=== PATIENT | female | born 1975 | race Caucasian/White ===

== ENCOUNTER 2016-12-31 05:06 | Observation (INO) ==
--- NOTE | 2016-12-31 05:19 | Emergency Department Note ---
Disposition Clinical Impression: Acute exacerbation of chronic obstructive airways disease, Hypoxia, Respiratory distress Disposition: Admitted As Inpatient Condition: Good Time of Disposition: 07:27 SOB HPI - General Chief Complaint: ED Shortness of Breath/Dyspnea Stated Complaint: gera/no voice Time Seen by Provider: 12/31/16 05:13 Source: patient Mode of arrival: ambulatory Limitations: no limitations Nursing Notes Reviewed: Yes Vital Signs Reviewed: Yes - History of Present Illness 13-year-old female past medical history hypertension, hyperlipidemia, COPD presents to the ED for difficulty in breathing. Reports URI symptoms over the past 3-4 days. She has increase difficulty breathing starting this evening and the last 2 days. Reports temperature of 101.2 3 hours prior to arrival, took Tylenol. She takes maintenance inhaler as well as albuterol inhaler which she used earlier prior to arrival. Reports increased use and frequency. Nonproductive cough. Has associated chest pain with deep inhalation and cough. Denies any recent long-distance travel, recent surgery, trauma, injury. History of uterine cancer in 1999. Denies any history of blood clots. Denies any recent hospitalizations in the past 3 months. Reports similar symptoms 7 years ago when she was hospitalized for pleurisy and pneumonia. 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 Pt Subjective Complaint: shortness of breath, cough Onset (ago): day(s) Consistency/Duration: intermittent Improves with: rest Known history of: COPD Associated symptoms: Reports: chest pain, pain with inspiration, fever, cough, wheezing. Denies: lower extremity pain, hemoptysis, diaphoresis, rash - Related Data Home Medications Medication Instructions Recorded Confirmed Furosemide [Lasix] 40 mg PO DAILY 06/13/15 12/31/16 Escitalopram [Lexapro] 10 mg PO DAILY 08/26/16 12/31/16 Atenolol [Tenormin] 50 mg PO DAILY 12/31/16 12/31/16 Dextroamphetamine/Amphetamine 10 mg PO BID 12/31/16 12/31/16 [Adderall 10 mg Tablet] Hydrocodone/Acetaminophen [[place] 1 tab PO Q6H PRN 12/31/16 12/31/16 7.5-325 Tablet] [place] Carbonate ER [Eskalith] 450 mg PO BID 12/31/16 12/31/16 Methocarbamol [Robaxin] 500 mg PO BID 12/31/16 12/31/16 Allergies Allergy/AdvReac Type Severity Reaction Status Date / Time codeine Allergy Hives Verified 12/31/16 09:25 Egg Derived AdvReac Abdominal Verified 12/31/16 05:10 Pain metoclopramide [From Reglan] AdvReac Weakness Verified 12/31/16 09:25 shellfish derived AdvReac Vomiting Verified 12/31/16 05:10 All systems ED: reviewed and negative except as stated. Constitutional: Reports: fever Cardiovascular: Reports: chest pain Respiratory: Reports: cough, dyspnea, wheezes Gastrointestinal: Denies: abdominal pain, nausea, vomiting Genitourinary: Denies: urgency, dysuria Integumentary: Denies: rash Neurological: Denies: headache Past Medical History - Past Medical History Attestation: Yes The following information was validated with the patient. 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 OFFICER history: Reports: no SUPERVISORY CBP OFFICER history - Social History Smoking Status: Former smoker Smokeless Tobacco Status: No Alcohol use: Reports: occasionally Drug use: Reports: none Physical Exam - General Limitations: no limitations General appearance: alert, in no apparent distress, obese, other (some conversational dyspnea) - Head Head exam: atraumatic, normocephalic, normal inspection - Eye Eye exam: Present: normal appearance, PERRL, EOMI - ENT ENT exam: normal exam, normal oropharynx, mucous membranes moist - Neck Neck exam: Present: normal inspection, full ROM, trachea midline - Chest Chest inspection: Present: normal inspection, symmetric chest wall rise, tenderness (chest discomfort reproducible on palpation). Absent: rash - Respiratory Respiratory exam: Present: normal lung sounds bilaterally, wheezes (Audible expiratory), other (Conversational dyspnea, 2 words). Absent: respiratory distress - Expanded Respiratory Exam Location: wheezes: Left, Right - Cardiovascular Cardiovascular exam: Present: regular rate, normal rhythm, normal heart sounds - Abdominal Exam Abdominal exam: Present: soft, Non-Tender, normal bowel sounds. Absent: tenderness, distention, guarding, rebound, rigidity - Extremities Exam Extremities exam: Present: normal inspection, full ROM, normal capillary refill. Absent: tenderness, pedal edema, calf tenderness - Neurological Exam Neurological exam: Present: alert, oriented X3 - Psychiatric Psychiatric exam: Present: normal affect, normal mood - Skin Skin exam: Present: warm, dry, intact, normal color Course Course Narrative: 41-year-old female history of COPD presents the ED with difficulty in breathing. This progressively worsened over the past 2 days. Reports of a nonproductive cough and fever. Increased use and inhalers. Patients afebrile here. Initially tachycardic 103 with O2 95% RA after ambulating to examination room she was HR 97 and 96% RA without intervention. Patient was ambulatory to the examination room without much difficulty. She has some audible wheezes and conversational dyspnea, but clear bilaterally with tight breath sounds. Chest tenderness reproducible on palpation. Legs are nonedematous without calf tenderness. Concern for possible pneumonia versus COPD exacerbation. Patient has low risk for PE, her process today is likely more COPD exacerbation with her known history. Will get CXR, basic labs, duonebs, steroids, and then reassess. Chest pain is likely not ACS, but will get troponin. EKG is normal sinus without any acute ischemic changes. Patient is in agreement with plan. - Reevaluation(s) Reevaluation #1: Chest x-ray interpreted by radiologist is clear lungs. However on review of films there appears to be a questionable infiltrate on the lateral film in the retro cardiac region. Patient does not have a leukocytosis, labs are otherwise unremarkable. Patient did become hypoxic at 88% responded well with oxygen supplementation 2 L nasal cannula. With additional 2 duoneb treatments, she has minimal improvement. Will plan to admit for COPD exacerbation, possible pneumonia with history of recent fever, and respiratory distress, hypoxia. Will treat with antibiotics Azithromycin 500 and Ceftriaxone 1000 mg. Complaints of a headache, toradol ordered. Patient is in agreement with plan. Time: 06:58 - Consultations Consultation #1: Spoke with on-call hospitalist jess Dockery to admit for COPD exacerbation, hypoxia, and respiratory distress. No further orders at this time Time: 07:27 Vital Signs Temperature 98.1 F 12/31/16 05:10 Pulse Rate 103 12/31/16 05:10 Respiratory Rate 28 12/31/16 05:10 Blood Pressure 133/84 12/31/16 05:10 O2 Sat by Pulse Oximetry 94 L 12/31/16 05:10 Temperature 98.0 F 01/02/17 19:38 Pulse Rate 68 01/02/17 19:38 Respiratory Rate 22 01/02/17 19:38 Blood Pressure 118/72 01/02/17 19:38 O2 Sat by Pulse Oximetry 92 L 01/02/17 19:38 Oxygen Delivery Oxygen Delivery Nasal Cannula Shortness of Breath/Dyspnea - Differential Diagnosis Likely: acute exacerbation of chronic obstructive airways disease - Medical Records Medical records reviewed: Yes I reviewed the patient's medical records. - Lab Data Lab results reviewed: Yes I reviewed the patient's lab results. Result diagrams: 12/31/16 06:06 01/02/17 04:26 Lab Results 12/31/16 12/31/16 12/31/16 Range/Units 06:06 06:06 06:06 WBC 8.8 (4.3-11.1) K/mcL RBC 4.48 (3.82-4.97) M/mcL Hgb 12.4 (11.5-15.4) g/dL Hct 38.1 (35.3-44.9) % MCV 85.0 (83.0-100.0) fL MCH 27.7 L (28.0-33.3) pg MCHC 32.5 (31.6-35.5) g/dL RDW 13.7 (11.5-14.5) % Plt Count 255 (140-400) K/mcL MPV 9.1 L (9.4-12.4) fL Immature Gran % 0.2 (0-4) % Seg Neutrophils % 60.5 % Lymphocytes % 27.4 % Monocytes % 7.8 % Eosinophils % 3.3 % Basophils % 0.8 % Neutrophils # 5.4 (1.6-8.9) K/mcL Lymphocytes # 2.4 (0.6-4.6) K/mcL Monocytes # 0.7 (0.0-1.3) K/mcL Eosinophils # 0.3 (0.0-0.6) K/mcL Basophils # 0.1 (0.0-0.2) K/mcL Sodium 139 (136-145) mEq/L Potassium 3.6 (3.5-4.5) mEq/L Chloride 107 (98-109) mEq/L Carbon Dioxide 22 (19-29) mEq/L BUN 16 (7-20) mg/dL Creatinine 0.84 (0.57-1.11) mg/dL Est GFR ( Amer) > 60 (> 60) Est GFR (Non-Af Amer) > 60 (> 60) BUN/Creatinine Ratio 19 (6-26) Glucose 94 (70-99) mg/dL Calculated Osmolality 289 (280-300) Calcium 8.9 (8.6-10.8) mg/dL Troponin I 0.00 (0-0.03) ng/mL - Radiology Data Radiology results reviewed: Yes I reviewed the patient's radiology results. Images interpreted by radiologist and reviewed by myself, area of concern on lateral view in retro cardiac region for infiltrate Chest X-Ray 12/31/16 05:29 IMPRESSION: Clear lungs. D/ / Donn Turpin MD / Donn Turpin MD Interpreting Provider: Donn Turpin MD - EKG Data EKG attestation: Yes I reviewed and interpreted this EKG. EKG results narrative: EKG performed 530 normal sinus rhythm 95 bpm, ventricular conduction delay, there are no ST elevations or depressions, T-wave inversion in lead III, possible left atrial enlargement, intervals are within normal limits LA 152 QRS 84 QT QTC 335 388. Compared old EKG performed 04/10/2015 which shows inverted T waves in inferior leads and precordial leads which are not present on today's EKG. No acute ischemic changes. Attestation Statement - Attestation Attestation: For this encounter, I have reviewed the resident, DIRECTOR INTERNATIONAL, or PA documentation, treatment plan, and medical decision making; and I have had face to face time with this patient. 41-year-old female who presents complaining of increased difficulty in breathing over the past 3-4 days. Patient states she has a history of COPD and asthma and her symptoms do feel somewhat similar to previous exacerbations. Patient reports a fever of 101.2 at home. She states she took Tylenol prior to arrival. Patient reports a hoarse voice over the past 48 hours. Patient given breathing treatments in the emergency department with mild improvement of her symptoms. She does not have a leukocytosis and the chest x-ray was read as negative however there is an area in the retrocardiac area that is concerning for infiltrate. The patient will receive antibiotics in the emergency department. At the end of my shift, 7am, she is receiving duo nebs and will be signed out to Dr. Chow pending re-evaluation and dispo
[2016-12-31] MEDS ORDERED: Ipratropium/Albuterol Neb 3 ML IH ONE ×3 (05:24→06:34)
[2016-12-31] MEDS ORDERED: predniSONE 20 MG TABLET PO ONE (05:28)
[2016-12-31 06:15] LABS: Basophils # 0.1 K/mcL (0.0-0.2); Basophils % 0.8 %; Eosinophils # 0.3 K/mcL (0.0-0.6); Eosinophils % 3.3 %; Hematocrit 38.1 % (35.3-44.9); Hemoglobin 12.4 g/dL (11.5-15.4); Immature Granulocytes % 0.2 % (0-4); Lymphocytes # 2.4 K/mcL (0.6-4.6); Lymphocytes % 27.4 %; Mean Corpuscular HGB Conc 32.5 g/dL (31.6-35.5); Mean Corpuscular Hemoglobin 27.7 pg (28.0-33.3); Mean Platelet Volume 9.1 fL (9.4-12.4); Monocytes # 0.7 K/mcL (0.0-1.3); Monocytes % 7.8 %; Neutrophils # 5.4 K/mcL (1.6-8.9); Platelet Count 255 K/mcL (140-400); Red Blood Count 4.48 M/mcL (3.82-4.97); Red Cell Distribution Width 13.7 % (11.5-14.5); Segmented Neutrophils % 60.5 %
[2016-12-31 06:28] LABS: BUN/Creatinine Ratio 19 (6-26); Blood Urea Nitrogen 16 mg/dL (7-20); Calcium 8.9 mg/dL (8.6-10.8); Carbon Dioxide 22 mEq/L (19-29); Chloride 107 mEq/L (98-109); Glucose 94 mg/dL (70-99); Osmolality,Calculated 289 (280-300); Potassium 3.6 mEq/L (3.5-4.5); Sodium 139 mEq/L (136-145); eGFR For African Americans > 60 (> 60); eGFR For Non-African Americans > 60 (> 60)
[2016-12-31] MEDS ORDERED: Azithromycin 500 MG in D5% in Water 250 ML IVPB SCH (07:00)
[2016-12-31] MEDS ORDERED: Ketorolac 30 MG/ML VIAL IVP ONE (07:17)
[2016-12-31] MEDS ORDERED: Albuterol 2.5 MG/3 ML NEBULIZER IH PRN (08:24)
[2016-12-31] MEDS ORDERED: Naloxone 0.4 MG/ML INJ IVP PRN (08:25)
[2016-12-31] MEDS ORDERED: Ibuprofen 400 MG TABLET PO PRN (08:25)
[2016-12-31] MEDS ORDERED: Acetaminophen 325 MG TABLET PO PRN (08:25)
[2016-12-31] MEDS ORDERED: Ondansetron 4 MG/2 ML VIAL IVP PRN (08:25)
[2016-12-31] MEDS ORDERED: *HR* HYDROcodone/Acet 5/325 mg TABLET PO PRN (08:25)
--- NOTE | 2016-12-31 08:36 | Internal Med History&Physical ---
Date of Encounter: 12/31/16 Time of Encounter: 07:45 Internal Medicine - H&P: HPI Chief complaint: COUGH, SOB, HOARSENESS OF VOICE, SORE THROAT X 2 DAYS Admitted From: Emergency Dept Plans for Post Hospital Care: Home History of present illness: Ms. Chi is a 41 year old female with medical history significant for hypertension, hyperlipidemia, asthma/COPD presents with 3 days of SOB, sore throat, cough, fever. She has had a documented temperature of 101.2 threee hours before presenting to the ED. She reports a non-productive cough. No rash, no sick contacts, no recent travel. 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 No recent hospitalization. No prior out-patient treatment. She is obese, she does not soke. She did not receive influenza vaccination for the season. She reports a similar episode 7 years ago , at that time she was diagnosed with pneumonia and pleurisy. She uses maintenance and rescue inhlalers for asthma/early COPD. Her only smoking history was smoking for 9 months while she was in her second marraige. She has used Tylenol for fever control. No history of CAD/DVT/PE. No long distance travel. nO URINARY OR NEUROLOGICAL SYMPTOMS, NO n/v/d OR CONSTIPATION, no hemoptysis, no bleeding from any orifice. no flank pain, she reports chest pain , worse with coughing and deep breathing. She has nasal and chest congestion, headaches and myalgia, though she has a background history of fibromyalgia. No earaches, dizziness or vertigo, no tinnitus or hearing loss. At arrival in the ED, she was afebrile, tachycardic (103), non-hypoxic, 95% (room air) but was wheezing. She has received Duonebs, Azithromycin and Ceftriaxone in the ED. She is FULL CODE as per discussion, she nominates her , Ricky Chi, [phone] as her NOK/POA. ROS: A 10-point ROS was performed, positives and relevant negatives are detailed , system-symptom not mentioned assumed negative unless otherwise stated. Family history: Mother is diabetic, was hypertensive and hypothyroid., siblings and children have a clean bill or health. She does not know much of her father' s medical history. Vital Signs Temperature 98.1 F 12/31/16 05:10 Pulse Rate 103 12/31/16 05:10 Respiratory Rate 28 12/31/16 05:10 Blood Pressure 133/84 12/31/16 05:10 O2 Sat by Pulse Oximetry 94 L 12/31/16 05:10 Temperature 98.1 F 12/31/16 05:10 Pulse Rate 97 12/31/16 05:26 Respiratory Rate 20 12/31/16 06:39 Blood Pressure 133/84 12/31/16 05:10 O2 Sat by Pulse Oximetry 97 12/31/16 06:39 O/E: Mild respiratory distress, ill and toxic looking HEENT: Not pale, anicteric, acyanotic, mild tachypnea. She is febrile to touch. Chest: Scattered expiratory wheezing, prolonged expiratory phase, inspiratory crackles in the lung bases. Chest wall pain reproduced with deep breathing and coughing. Heart: Tachycardia, RR, HS1.2 no murmur Abdomen: soft, non-tender, no masses. BS+ : no flank tenderness, no CVA tenderness, no suprapubic tenderness. CREDIT COORDINATOR: aao x 3, no focal neurological deficits. Psychiatry: mood is good, affect is congruent, speech is normal, thought process is logical and goal-directed. Extremities: no pedal edema, normal pedal pulse, no calf tenderness. Lab Results 12/31/16 12/31/16 12/31/16 Range/Units 06:06 06:06 06:06 WBC 8.8 (4.3-11.1) K/mcL RBC 4.48 (3.82-4.97) M/mcL Hgb 12.4 (11.5-15.4) g/dL Hct 38.1 (35.3-44.9) % MCV 85.0 (83.0-100.0) fL MCH 27.7 L (28.0-33.3) pg MCHC 32.5 (31.6-35.5) g/dL RDW 13.7 (11.5-14.5) % Plt Count 255 (140-400) K/mcL MPV 9.1 L (9.4-12.4) fL Immature Gran % 0.2 (0-4) % Seg Neutrophils % 60.5 % Lymphocytes % 27.4 % Monocytes % 7.8 % Eosinophils % 3.3 % Basophils % 0.8 % Neutrophils # 5.4 (1.6-8.9) K/mcL Lymphocytes # 2.4 (0.6-4.6) K/mcL Monocytes # 0.7 (0.0-1.3) K/mcL Eosinophils # 0.3 (0.0-0.6) K/mcL Basophils # 0.1 (0.0-0.2) K/mcL Sodium 139 (136-145) mEq/L Potassium 3.6 (3.5-4.5) mEq/L Chloride 107 (98-109) mEq/L Carbon Dioxide 22 (19-29) mEq/L BUN 16 (7-20) mg/dL Creatinine 0.84 (0.57-1.11) mg/dL Est GFR ( Amer) > 60 (> 60) Est GFR (Non-Af Amer) > 60 (> 60) BUN/Creatinine Ratio 19 (6-26) Glucose 94 (70-99) mg/dL Calculated Osmolality 289 (280-300) Calcium 8.9 (8.6-10.8) mg/dL Troponin I 0.00 (0-0.03) ng/mL CXR: questionable retrocardic opacity on lateral view. EKG: NSR. no acute changes suggestive of ischemia IMP Sepsis Bilateral pneumonia Asthma exacerbation Mild dehydration Chronic morbidities COPD/Asthma Fibromyalgia Lupus (patient's account) PLAN Admit Rapid influenza, rapid streoptococcal and urine for strep pneumonia antigen IV Ceftriaxone and Azithromycin IV NS with 20 mEQ @ 150 mls/hr Scheduled Duonebs and prn albuterol. Optimal analgesia Regular diet Lovenox 40 mg SC for DVT prophylaxis Oxygen supplementation CT chest, non-contrast. Continue other medivations of chronic medical morbidities I discussed my assessment with the patient, her son was at bedside, she verbalized understanding and is agreeable to admission. She is high risk giving suspicion for sepsis in the setting of pneumonia. Past Med Surg Social Fam HX - Past Medical History Medical history: fibromyalgia, GERD, hypertension, migraine Psychiatric history: anxiety, depression, PTSD - Past Surgical History Surgical History: hysterectomy - Social History Smoking Status: Former smoker Smokeless Tobacco Status: No Alcohol use: occasionally Drug use: none Internal Medicine - H&P: Meds Atenolol [Tenormin] 100 mg PO DAILY 06/13/15 [History] Esomeprazole Magnesium [Nexium] 40 mg PO DAILY 06/13/15 [History] Furosemide [Lasix] 40 mg PO DAILY 06/13/15 [History] Losartan [Cozaar] 25 mg PO DAILY 06/13/15 [History] Milnacipran HCl [[place]] 100 mg PO BID 06/13/15 [History] Montelukast [Singulair] 10 mg PO DAILY 06/13/15 [History] Potassium Chloride 10 meq PO BIDWM 06/13/15 [History] Prazosin [Minipress] 5 mg PO DAILY 06/13/15 [History] Ranitidine HCl 150 mg PO DAILY 06/13/15 [History] Trazodone HCl 150 mg PO DAILY 06/13/15 [History] Hydrocodone/Acetaminophen [[place] 7.5-325 Tablet] 1 each PO Q6H PRN #20 tablet [Rx] Escitalopram [Lexapro] 10 mg PO DAILY 08/26/16 [History] [place] Carbonate 150 mg PO DAILY 08/26/16 [History] Allergies codeine Allergy (Verified 12/31/16 05:10) Nausea metoclopramide [From Reglan] Allergy (Verified 12/31/16 05:10) Nausea Egg Derived Adverse Reaction (Verified 12/31/16 05:10) Abdominal Pain shellfish derived Adverse Reaction (Verified 12/31/16 05:10) Vomiting All Systems PM: A 10-system review of systems was performed and is negative for pertinent findings except as documented above in the HPI. - Constitutional Vitals: Temp Pulse Resp BP Pulse Ox 98.1 F 97 20 133/84 97 12/31/16 05:10 12/31/16 05:26 12/31/16 06:39 12/31/16 05:10 12/31/16 06:39 Internal Med - H&P Results - Labs CBC & Chem 7: 12/31/16 06:06 12/31/16 06:06
[2016-12-31] MEDS: 0.9 % Sodium Chloride w KCl 20 MEQ/1,000 ML MLS IVC SCH ×3 (09:58→22:33)
[2016-12-31] MEDS: Famotidine 20 MG TABLET PO SCH ×2 (09:58→20:47)
[2016-12-31] MEDS ORDERED: FLU VACC QS2016-17 36MOS UP/PF 0.5 ML SYRINGE IM ONE (10:57)
[2016-12-31] MEDS: Ipratropium/Albuterol Neb 3 ML IH SCH ×3 (11:22→23:04)
[2016-12-31] MEDS: methylPREDNISolone 125 MG/2 ML VIAL IVP SCH (16:13)
[2016-12-31] MEDS: *HR* HYDROcodone/Acet 7.5/325 mg TABLET PO PRN ×2 (16:13→22:26)
[2016-12-31] MEDS: Methocarbamol 500 MG TABLET PO SCH (20:46)
[2016-12-31] MEDS: Lithium Carbonate ER 450 MG TABLET.ER PO SCH (22:04)
[2017-01-01] MEDS: methylPREDNISolone 125 MG/2 ML VIAL IVP SCH ×4 (00:02→23:54)
[2017-01-01] MEDS: Ipratropium/Albuterol Neb 3 ML IH SCH ×4 (05:05→23:40)
[2017-01-01] MEDS: 0.9 % Sodium Chloride w KCl 20 MEQ/1,000 ML MLS IVC SCH (05:20)
[2017-01-01] MEDS: *HR* Enoxaparin 40 MG/0.4 ML SYRINGE SQ SCH (06:09)
[2017-01-01 06:46] LABS: Alanine Aminotransferase 13 Units/L (0-55); Albumin 3.5 g/dL (3.5-5.0); Alkaline Phosphatase 55 Units/L (38-126); Aspartate Amino Transferase 14 Units/L (5-34); BUN/Creatinine Ratio 13 (6-26); Bilirubin,Total 0.2 mg/dL (0.2-1.2); Blood Urea Nitrogen 9 mg/dL (7-20); Calcium 8.9 mg/dL (8.6-10.8); Carbon Dioxide 20 mEq/L (19-29); Chloride 110 mEq/L (98-109); Globulin 3.4 g/dL (2.4-3.5); Glucose 151 mg/dL (70-99); Osmolality,Calculated 288 (280-300); Sodium 138 mEq/L (136-145); Total Protein 6.9 g/dL (6.0-8.3); eGFR For African Americans > 60 (> 60); eGFR For Non-African Americans > 60 (> 60)
[2017-01-01 06:49] LABS: Potassium 4.8 mEq/L (3.5-4.5)
[2017-01-01] MEDS: *HR* HYDROcodone/Acet 7.5/325 mg TABLET PO PRN ×2 (08:51→18:02)
[2017-01-01] MEDS: Methocarbamol 500 MG TABLET PO SCH ×2 (08:51→21:10)
[2017-01-01] MEDS: Lithium Carbonate ER 450 MG TABLET.ER PO SCH ×2 (08:51→21:10)
[2017-01-01] MEDS: Famotidine 20 MG TABLET PO SCH ×2 (08:51→21:10)
[2017-01-01] MEDS ORDERED: Azithromycin 500 MG in D5% in Water 250 ML IVPB SCH (09:00)
[2017-01-01] MEDS: *HR* Morphine 2 MG/ML SYRINGE IVP PRN ×2 (12:40→21:10)
--- NOTE | 2017-01-01 12:54 | Internal Med Progress Note ---
Date of Encounter: 01/01/17 Time of Encounter: 11:10 - Assessment and plan (1) Bronchitis Current Visit: Yes Status: Acute Assessment and plan: Continue supportive care NO evidence of pneumonia Flu is negative Throat culture is negative Change antibiotics to po starting from tomorrow Continue duonebs Continue solumedrol Change to prednisone po a.m Start lozenges Saturating 96% on room air, ot hypoxic Continue supportive care (2) Acute exacerbation of chronic obstructive airways disease Current Visit: Yes Status: Acute Assessment and plan: As above (3) Lupus Current Visit: Yes Status: Acute Assessment and plan: Self-reported Resume home meds Qualifiers: Systemic lupus erythematosus type: unspecified Systemic lupus erythematosus organ involvement: unspecified Qualified Code(s): M32.9 - Systemic lupus erythematosus, unspecified (4) Fibromyalgia Current Visit: Yes Status: Chronic Assessment and plan: Self-reported Continue home meds Obtain Utox (5) Anxiety Current Visit: Yes Status: Chronic Assessment and plan: Resume home meds - Subjective Interval history: Initial encounter EMR reviewed 41 year old female with medical history significant for hypertension, fibromyalgia, hyperlipidemia, asthma/COPD, ANNA s/p uvulectomy, no longer on BIPAP, ADHD, Bipolar disorder Patient is being managed for acute asthma exacerbations secondary to bronchitis Patient is not septic, she did verbally report a fever of 102, but has been afebrile since admission, there is also no leukocytosis or leukopenia, nor is there a source at the moment (Chest CT and CXR negative for PNA, NO tonsillar exudates on exam, throat culture is negative, she has no urinary symptoms) She is seen at bedside, comfortable in no obvious distress She reports she feels better and Still has sore throat, throat exam reveals mild hyperemia, no exudates, no lymphadenopathy She is also requesting to be restarted on home dose of lasix, patient was placed on IVF due to suspicion of sepsis on presentation - Constitutional Vitals: Temp Pulse Resp BP Pulse Ox 97.9 F 72 16 115/64 95 01/01/17 11:57 01/01/17 11:57 01/01/17 11:57 01/01/17 11:57 01/01/17 11:57 General appearance: Present: A&O X 3, morbidly obese, pleasant, no acute distress - Head Head exam: Present: atraumatic - Eye Eye exam: Present: PERRL, conjuntiva pink, sclera anicteric - ENT ENT exam: Present: mucous membranes moist Additional comments: No pharyngeal exudates - Neck Neck exam general surgery: Present: normal inspection. Absent: lymphadenopathy , nuchal rigidity - Respiratory Respiratory exam: Present: CTAB. Absent: accessory muscle use, rales, rhonchi, wheezes - Cardiovascular Cardiovascular exam: Present: RRR, +S1, +S2. Absent: diastolic murmur, gallop, rubs, systolic murmur - GI/Abdominal GI/Abdominal exam: Present: normal bowel sounds, soft, no peritoneal signs. Absent: distended, tenderness - Extremities Exam Extremities exam: Present: warm, radial pulses palpable and symetrical. Absent : calf tenderness, cyanotic, pedal edema - Neurological Exam Neurological exam: Present: CN II-XII intact, oriented X3, no focal deficits. Absent: pronater drift, facial droop, speech deficit - Skin Skin exam: Present: dry, excoriation (Bilateral lower extremity excoriation- patient reported multiple insect bites in october from gardening) Internal Medicine: Result - Labs CBC & Chem 7: 12/31/16 06:06 01/01/17 04:40 Labs: BMP 01/01/17 04:40 Sodium 138 Potassium 4.8 H D Chloride 110 H Carbon Dioxide 20 BUN 9 Creatinine 0.67 Glucose 151 H Calcium 8.9 Liver Function 01/01/17 Range/Units 04:40 Total Bilirubin 0.2 (0.2-1.2) mg/dL AST 14 (5-34) Units/L ALT 13 (0-55) Units/L Alkaline Phosphatase 55 (38-126) Units/L Albumin 3.5 (3.5-5.0) g/dL Consult Discharge Plan - Plan Referrals: Mary Chowdhury MD [Primary Care Provider] - 01/12/17 9:00 am
[2017-01-01 13:32] LABS: Amphetamine Screen,Urine Negative ng/mL (Cutoff=1000); Barbiturate Screen,Urine Negative ng/mL (Cutoff=200); Benzodiazepines Screen,Urine Negative ng/mL (Cutoff=200); Cannabinoid Screen,Urine Negative ng/mL (Cutoff = 50); Cocaine Screen,Urine Negative ng/mL (Cutoff= 300); Opiate Screen,Urine Positive ng/mL (Cutoff=300); Phencyclidine Screen,Urine Negative ng/mL (Cutoff=25)
[2017-01-02] MEDS: *HR* HYDROcodone/Acet 7.5/325 mg TABLET PO PRN ×3 (03:24→19:58)
[2017-01-02 04:59] LABS: BUN/Creatinine Ratio 19 (6-26); Blood Urea Nitrogen 13 mg/dL (7-20); Carbon Dioxide 21 mEq/L (19-29); Chloride 108 mEq/L (98-109); Glucose 146 mg/dL (70-99); Osmolality,Calculated 291 (280-300); Potassium 4.7 mEq/L (3.5-4.5); Sodium 139 mEq/L (136-145); eGFR For African Americans > 60 (> 60); eGFR For Non-African Americans > 60 (> 60)
[2017-01-02] MEDS: Ipratropium/Albuterol Neb 3 ML IH SCH ×4 (05:11→22:02)
[2017-01-02] MEDS: *HR* Enoxaparin 40 MG/0.4 ML SYRINGE SQ SCH (06:25)
--- NOTE | 2017-01-02 06:50 | Electrocardiograph Report ---
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
[2017-01-02] MEDS: methylPREDNISolone 125 MG/2 ML VIAL IVP SCH (07:51)
[2017-01-02] MEDS: predniSONE 20 MG TABLET PO SCH (08:19)
[2017-01-02] MEDS: Lithium Carbonate ER 450 MG TABLET.ER PO SCH ×2 (08:20→19:58)
[2017-01-02] MEDS: Furosemide 40 MG TABLET PO SCH (08:20)
[2017-01-02] MEDS: Famotidine 20 MG TABLET PO SCH ×2 (08:20→19:58)
[2017-01-02] MEDS: Methocarbamol 500 MG TABLET PO SCH ×2 (08:20→19:58)
[2017-01-02] MEDS: *HR* Morphine 2 MG/ML SYRINGE IVP PRN ×2 (08:28→16:36)
--- NOTE | 2017-01-02 08:44 | Internal Med Progress Note ---
Date of Encounter: 01/02/17 Time of Encounter: 08:20 - Assessment and plan (1) Bronchitis Current Visit: Yes Status: Acute Assessment and plan: Continue supportive care No evidence of pneumonia on CXR/CT scan with mild bilateral lung scarring Flu is negative Throat culture eliana [facility] Start levoflox po Continue duonebs Discontinue solumedrol Continue prednisone Continue lozenges Follow final sputum culture results Saturating 93% on room air, Continue supportive care (2) Acute exacerbation of chronic obstructive airways disease Current Visit: Yes Status: Acute Assessment and plan: As above (3) Lupus Current Visit: Yes Status: Acute Assessment and plan: Self-reported Continue home meds Qualifiers: Systemic lupus erythematosus type: unspecified Systemic lupus erythematosus organ involvement: unspecified Qualified Code(s): M32.9 - Systemic lupus erythematosus, unspecified (4) Fibromyalgia Current Visit: Yes Status: Chronic Assessment and plan: Self-reported Continue home meds (5) Anxiety Current Visit: Yes Status: Chronic Assessment and plan: Continue home meds - Subjective Interval history: 41 year old female with medical history significant for hypertension, fibromyalgia, hyperlipidemia, asthma/COPD, ANNA s/p uvulectomy, no longer on BIPAP, ADHD, Bipolar disorder Patient is being managed for acute asthma exacerbations secondary to bronchitis She remains afebrile since admission, no tachycardia, there is also no leukocytosis or leukopenia, Chest CT and CXR negative for PNA, No tonsilar exudates on exam, throat culture is negative, she has no urinary symptoms She is seen at bedside She reports some improvement on breathing She is now having sputum production, whitish Sputum culture today with GNR Patient had been on IV Ceftriaxone and Azithromycin po Will change to Levoflox Significant wheezing on exam, continue nebs and steroid Continue other meds Follow final sputum culture - Constitutional Vitals: Temp Pulse Resp BP Pulse Ox 98.3 F 78 14 120/72 93 L 01/02/17 06:43 01/02/17 06:43 01/02/17 06:43 01/02/17 06:43 01/02/17 06:43 General appearance: Present: A&O X 3, morbidly obese, pleasant, no acute distress - Head Head exam: Present: atraumatic, normocephalic - Eye Eye exam: Present: PERRL, conjuntiva pink, sclera anicteric - ENT ENT exam: Present: mucous membranes moist - Neck Neck exam general surgery: Present: normal inspection. Absent: lymphadenopathy - Respiratory Respiratory exam: Present: wheezes. Absent: accessory muscle use, chest wall tenderness, rales, rhonchi, tachypnea - Cardiovascular Cardiovascular exam: Present: RRR, +S1, +S2. Absent: systolic murmur, tachycardia - GI/Abdominal GI/Abdominal exam: Present: normal bowel sounds, soft, no peritoneal signs. Absent: mass, tenderness - Extremities Exam Extremities exam: Absent: pedal edema - Back Exam Back exam: Present: normal inspection. Absent: CVA tenderness (L), CVA tenderness (R) - Neurological Exam Neurological exam: Present: alert, oriented X3, no focal deficits, strengths equal and symetr throughout. Absent: pronater drift, facial droop, speech deficit - Skin Skin exam: Absent: rash Internal Medicine: Result - Labs CBC & Chem 7: 12/31/16 06:06 01/02/17 04:26 Labs: BMP 01/02/17 04:26 Sodium 139 Potassium 4.7 H Chloride 108 Carbon Dioxide 21 BUN 13 Creatinine 0.69 Glucose 146 H Calcium 9.0 Consult Discharge Plan - Plan Referrals: Mary Chowdhury MD [Primary Care Provider] - 01/12/17 9:00 am
[2017-01-02] MEDS: levoFLOXacin 750 MG TABLET PO SCH (08:52)
[2017-01-02] MEDS ORDERED: Azithromycin 250 MG TABLET PO SCH (09:00)
[2017-01-02] MEDS: Benzonatate 100 MG CAPSULE PO PRN ×2 (12:38→19:58)
[2017-01-03] MEDS: *HR* Morphine 2 MG/ML SYRINGE IVP PRN ×2 (01:18→11:32)
[2017-01-03] MEDS: Ipratropium/Albuterol Neb 3 ML IH SCH ×2 (04:24→10:07)
[2017-01-03] MEDS: *HR* Enoxaparin 40 MG/0.4 ML SYRINGE SQ SCH (06:39)
[2017-01-03] MEDS: *HR* HYDROcodone/Acet 7.5/325 mg TABLET PO PRN ×2 (06:42→14:45)
[2017-01-03] MEDS: Furosemide 40 MG TABLET PO SCH (07:46)
[2017-01-03] MEDS: levoFLOXacin 750 MG TABLET PO SCH (07:46)
[2017-01-03] MEDS: Lithium Carbonate ER 450 MG TABLET.ER PO SCH (07:46)
[2017-01-03] MEDS: Famotidine 20 MG TABLET PO SCH (07:46)
[2017-01-03] MEDS: Methocarbamol 500 MG TABLET PO SCH (07:46)
[2017-01-03] MEDS: predniSONE 20 MG TABLET PO SCH (07:46)
[2017-01-03 11:09] VITALS: BP 105/67
--- NOTE | 2017-01-03 14:11 | Discharge Summary ---
Date of Encounter: 01/03/17 Time of Encounter: 14:08 - Discharge Diagnosis (1) Bronchitis Priority: Primary Status: Acute (2) Acute exacerbation of chronic obstructive airways disease Priority: Primary Status: Acute (3) Lupus Priority: Secondary Status: Chronic Qualifiers: Systemic lupus erythematosus type: unspecified Systemic lupus erythematosus organ involvement: unspecified Qualified Code(s): M32.9 - Systemic lupus erythematosus, unspecified (4) Fibromyalgia Priority: Secondary Status: Chronic (5) Anxiety Priority: Secondary Status: Chronic - Discharge Medications Prescriptions: Benzocaine/Menthol Melanie [Cepacol Sore Throat Lozenge] 1 each MM Q2H PRN #10 lozenge PRN Reason: Sore Throat Benzonatate [Tessalon] 200 mg PO TID PRN #15 capsule PRN Reason: Cough Levofloxacin 750 mg PO DAILY #6 tablet PredniSONE 40 mg PO DAILY #15 tablet Home Medications: Furosemide [Lasix] 40 mg PO DAILY 06/13/15 [History] Escitalopram [Lexapro] 10 mg PO DAILY 08/26/16 [History] Atenolol [Tenormin] 50 mg PO DAILY 12/31/16 [History] Dextroamphetamine/Amphetamine [Adderall 10 mg Tablet] 10 mg PO BID 12/31/16 [ History] Hydrocodone/Acetaminophen [Welcome 7.5-325 Tablet] 1 tab PO Q6H PRN 12/31/16 [ History] Benbow Carbonate ER [Eskalith] 450 mg PO BID 12/31/16 [History] Methocarbamol [Robaxin] 500 mg PO BID 12/31/16 [History] Benzocaine/Menthol Melanie [Cepacol Sore Throat Lozenge] 1 each MM Q2H PRN #10 lozenge 01/03/17 [Rx] Benzonatate [Tessalon] 200 mg PO TID PRN #15 capsule 01/03/17 [Rx] Levofloxacin 750 mg PO DAILY #6 tablet 01/03/17 [Rx] PredniSONE 40 mg PO DAILY #15 tablet 01/03/17 [Rx] Allergies/Adverse Reactions: Allergies codeine Allergy (Verified 12/31/16 09:25) Hives Egg Derived Adverse Reaction (Verified 12/31/16 05:10) Abdominal Pain metoclopramide [From Reglan] Adverse Reaction (Verified 12/31/16 09:25) Weakness shellfish derived Adverse Reaction (Verified 12/31/16 05:10) Vomiting Date of admission: 12/31/16 07:38 Primary care physician: Mary Chowdhury, Discharging clinician: Kojo Machado Anticipated date of discharge: 01/03/17 - Patient Status Disposition: Home, Self-Care Condition: Good Functional capacity at discharge: independent ambulation Overall status at discharge: patient is progressing back to baseline - Discharge Instructions Instructions: Chronic Obstructive Pulmonary Disease (DC), Anxiety (DC) Follow Up With: Mary Chowdhury MD [Primary Care Provider] - 01/12/17 9:00 am Forms: Work/School Release - Diet and Activity Activity: resume usual activities as tolerated Diet: low fat, low cholesterol, low salt diet Interval History: See below Hospital course: Ms. Chi is a 41 year old female with medical history significant for hypertension, fibromyalgia, hyperlipidemia, asthma/COPD, ANNA s/p uvulectomy, no longer on BIPAP, ADHD, Bipolar disorder Patient was being managed for acute asthma exacerbations secondary to bronchitis from Klebsiella PNA. She was placed on IVF for hydration and IV Ceftriasone and Azithromycin. Antibiotics was changed to po levofloxacin based on sputum culture She is seen this morning, reports improvement in sore throat and chest pain, as well as cough Through hospital stay, she remained afebrile , no tachycardia, there is also no leukocytosis or leukopenia, Chest CT and CXR negative for PNA, No tonsilar exudates on exam, throat culture is negative, she has no urinary symptoms Sputum culture grew Klebsiella pneumonia sensitive to Levofloxacin Patient was discharged on same She is also encouraged to continue prednisone tapering as well as albuterol nebs prn and MDI Resume other home meds - Time Spent with Patient Total time spent providing and/or coordinating discharge services: Less than 30 minutes - Constitutional Vitals: Temp Pulse Resp BP Pulse Ox 98.2 F 65 16 105/67 95 01/03/17 11:08 01/03/17 11:08 01/03/17 11:08 01/03/17 11:08 01/03/17 11:08 General appearance: Present: A&O X 3, morbidly obese, pleasant, no acute distress - Head Head exam: Present: atraumatic - Eye Eye exam: Present: PERRL, conjuntiva pink, sclera anicteric - Neck Neck exam general surgery: Present: normal inspection - Respiratory Respiratory exam: Present: wheezes - Cardiovascular Cardiovascular exam: Present: RRR, +S1, +S2. Absent: tachycardia - GI/Abdominal GI/Abdominal exam: Present: normal bowel sounds, soft, no peritoneal signs. Absent: distended, tenderness - Extremities Exam Extremities exam: Present: warm, radial pulses palpable and symetrical. Absent : calf tenderness, cyanotic, pedal edema - Neurological Exam Neurological exam: Present: CN II-XII intact, oriented X3, no focal deficits. Absent: pronater drift, facial droop, speech deficit - Skin Skin exam: Present: dry, intact
== END 2017-01-03 14:55 | disposition home or self-care (01) ==
LOC: 2NNU 05:06 → EMEROO 05:06 → 2NNU 08:50 → SUATTDRO 09:29 → 3BNU 01-01 19:30
PROVIDERS: ADMIT Internal Medicine; ATTEND Internal Medicine

== ENCOUNTER 2020-11-11 18:41 | Observation (INO) ==
[2020-11-11] MEDS ORDERED: Ipratropium/Albuterol Neb 3 ML IH ONE (18:47)
[2020-11-11] MEDS ORDERED: Benzonatate 100 MG CAPSULE PO ONE (18:49)
[2020-11-11 19:13] LABS: Basophils # 0.1 K/mcL (0.0-0.2); Basophils % 0.5 %; Eosinophils % 0.1 %; Hematocrit 41.9 % (35.3-44.9); Hemoglobin 13.8 g/dL (11.5-15.4); Immature Granulocytes % 1.4 % (0-4); Lymphocytes # 0.7 K/mcL (0.6-4.6); Lymphocytes % 4.9 %; Mean Corpuscular HGB Conc 32.9 g/dL (31.6-35.5); Mean Corpuscular Hemoglobin 27.2 pg (28.0-33.3); Mean Corpuscular Volume 82.6 fL (83.0-100.0); Mean Platelet Volume 10.2 fL (9.4-12.4); Monocytes # 0.1 K/mcL (0.0-1.3); Neutrophils # 12.4 K/mcL (1.6-8.9); Platelet Count 299 K/mcL (140-400); Red Blood Count 5.07 M/mcL (3.82-4.97); Red Cell Distribution Width 14.3 % (11.5-14.5); Segmented Neutrophils % 92.1 %; White Blood Count 13.4 K/mcL (4.3-11.1)
[2020-11-11 19:34] LABS: Alanine Aminotransferase 19 Units/L (7-52); Albumin 4.5 g/dL (3.5-5.7); Albumin/Globulin Ratio 1.4 (1.1-2.2); Alkaline Phosphatase 77 Units/L (34-104); Aspartate Amino Transferase 16 Units/L (13-39); BUN/Creatinine Ratio 11 (6-26); Bilirubin,Total 0.4 mg/dL (0.3-1.0); Blood Urea Nitrogen 10 mg/dL (6-20); Calcium 9.6 mg/dL (8.6-10.3); Carbon Dioxide 24 mEq/L (23-29); Chloride 101 mEq/L (98-107); Globulin 3.3 g/dL (2.4-3.5); Glucose 171 mg/dL (70-105); Magnesium 1.9 mg/dL (1.6-2.6); Osmolality,Calculated 287 (280-300); Sodium 137 mEq/L (136-145); Total Protein 7.8 g/dL (6.4-8.9); Troponin I < 0.03 ng/mL (< 0.04); eGFR For African Americans > 60 (> 60); eGFR For Non-African Americans > 60 (> 60)
[2020-11-11] MEDS ORDERED: Acetaminophen/Butalbital/CaffeineTABLET PO ONE (20:11)
[2020-11-11 20:22] LABS: Adenovirus Not Detected (Not Detect); Bordetella Pertussis Not Detected (Not Detect); Chlamydophila pneumoniae Not Detected (Not Detect); Coronavirus 229E Not Detected (Not Detect); Coronavirus HKU1 Not Detected (Not Detect); Coronavirus NL63 Not Detected (Not Detect); Coronavirus OC43 Not Detected (Not Detect); Human Metapneumovirus Not Detected (Not Detect); Human Rhinovirus/Enterovirus DETECTED (Not Detect); Influenza A Subtype 2009 H1 Not Detected (Not Detect); Influenza B Not Detected (Not Detect); Mycoplasma pneumoniae Not Detected (Not Detect); Parainfluenza Virus 1 Not Detected (Not Detect); Parainfluenza Virus 2 Not Detected (Not Detect); Parainfluenza Virus 3 Not Detected (Not Detect); Parainfluenza Virus 4 Not Detected (Not Detect); Respiratory Syncytial Virus Not Detected (Not Detect); SARS-CoV-2 Not Detected (Not Detect)
[2020-11-11] MEDS ORDERED: Albuterol 2.5 MG/3 ML NEBULIZER IH ONE (20:39)
[2020-11-11] MEDS ORDERED: Prochlorperazine 10 MG/2 ML VIAL IVP ONE (20:40)
[2020-11-11] MEDS ORDERED: Naloxone 0.4 MG/ML INJ IVP PRN (21:10)
[2020-11-11] MEDS ORDERED: Ondansetron ODT 4 MG TAB.RAPDIS SL PRN (21:10)
[2020-11-11] MEDS ORDERED: Dextrose Gel 15 GM/37.5 ML TUBE PO PRN ×2 (21:15)
[2020-11-11] MEDS ORDERED: D5% in Water 1,000 ML IVC PRN (21:15)
[2020-11-11] MEDS ORDERED: *HR* Dextrose 50 % in Water (Vial) 50 ML VIAL IVP PRN (21:15)
[2020-11-11] MEDS: Azithromycin 500 MG in 0.9 % Sodium Chloride 250 ML IVPB SCH (22:27)
[2020-11-11] MEDS: Insulin LISPRO 300 UNITS/3 ML VIAL SUBQ SCH ×2 (22:28)
[2020-11-12 01:02] LABS: Basophils % 0.2 %; Eosinophils % 0.2 %; Hematocrit 41.7 % (35.3-44.9); Hemoglobin 13.6 g/dL (11.5-15.4); Immature Granulocytes % 0.6 % (0-4); Lymphocytes # 0.8 K/mcL (0.6-4.6); Lymphocytes % 8.9 %; Mean Corpuscular HGB Conc 32.6 g/dL (31.6-35.5); Mean Corpuscular Hemoglobin 27.7 pg (28.0-33.3); Mean Corpuscular Volume 84.9 fL (83.0-100.0); Mean Platelet Volume 11.4 fL (9.4-12.4); Monocytes # 0.1 K/mcL (0.0-1.3); Neutrophils # 8.4 K/mcL (1.6-8.9); Platelet Count 169 K/mcL (140-400); Red Blood Count 4.91 M/mcL (3.82-4.97); Red Cell Distribution Width 14.3 % (11.5-14.5); Segmented Neutrophils % 89.1 %; White Blood Count 9.4 K/mcL (4.3-11.1)
[2020-11-12 01:21] LABS: BUN/Creatinine Ratio 16 (6-26); Blood Urea Nitrogen 11 mg/dL (6-20); Calcium 9.2 mg/dL (8.6-10.3); Carbon Dioxide 23 mEq/L (23-29); Chloride 103 mEq/L (98-107); Glucose 165 mg/dL (70-105); Magnesium 1.9 mg/dL (1.6-2.6); Osmolality,Calculated 285 (280-300); Phosphorous 2.9 mg/dL (2.7-4.5); Potassium 3.8 mEq/L (3.5-5.1); Sodium 136 mEq/L (136-145); eGFR For African Americans > 60 (> 60); eGFR For Non-African Americans > 60 (> 60)
[2020-11-12] MEDS: MethylPREDNISolone 40 MG/ML VIAL IVP SCH ×3 (01:33→20:45)
[2020-11-12] MEDS: *HR* Enoxaparin 40 MG/0.4 ML SYRINGE SQ SCH (04:53)
[2020-11-12] MEDS ORDERED: Furosemide 40 MG TABLET PO PRN (06:47)
[2020-11-12] MEDS: atenoloL 50 MG TABLET PO SCH (08:34)
[2020-11-12] MEDS: Azithromycin 500 MG in 0.9 % Sodium Chloride 250 ML IVPB SCH (08:35)
[2020-11-12] MEDS: Insulin LISPRO 300 UNITS/3 ML VIAL SUBQ SCH ×4 (08:45→20:47)
[2020-11-12] MEDS ORDERED: Ketorolac 15 MG/ML VIAL IVP ONE (11:13)
[2020-11-12 12:41] LABS: Estimated Average Glucose 134 mg/dl; Hemoglobin A1C 6.3 %
[2020-11-12] MEDS: tiZANidine 4 MG TABLET PO PRN (14:10)
[2020-11-12] MEDS ORDERED: tiZANidine 4 MG TABLET PO SCH (18:00)
[2020-11-12] MEDS ORDERED: Benzonatate 100 MG CAPSULE PO PRN (20:58)
[2020-11-12] MEDS: Acetaminophen 325 MG TABLET PO PRN (21:11)
[2020-11-13] MEDS: *HR* Enoxaparin 40 MG/0.4 ML SYRINGE SQ SCH (05:58)
[2020-11-13 07:23] VITALS: BP 116/67
[2020-11-13] MEDS: Insulin LISPRO 300 UNITS/3 ML VIAL SUBQ SCH (09:02)
[2020-11-13] MEDS: Azithromycin 500 MG in 0.9 % Sodium Chloride 250 ML IVPB SCH (09:13)
[2020-11-13] MEDS: MethylPREDNISolone 40 MG/ML VIAL IVP SCH (09:13)
[2020-11-13] MEDS: tiZANidine 4 MG TABLET PO PRN (09:26)
[2020-11-13] MEDS: Acetaminophen 325 MG TABLET PO PRN (09:32)
[2020-11-13] MEDS: atenoloL 50 MG TABLET PO SCH (09:33)
== END 2020-11-13 13:08 | disposition home or self-care (01) ==
LOC: CDU 18:41 → EMEROOARM 18:41 → SUATTDRO 21:00 → CDU 21:44 → 3ANU 11-12 06:10
PROVIDERS: ADMIT Internal Medicine; ATTEND Internal Medicine